=== PATIENT | male | born 1975 | race African-American/Black ===

== ENCOUNTER 2018-12-07 11:34 | Emergency (ER) | payer OTHER ==
[~2018-12-07] VITALS: Ht 175.3 cm; Wt 77.3 kg
[~2018-12-07 11:34] MED LIST: NOCURR
[2018-12-07] MEDS ORDERED: IBUPROFEN 600 MG TABLET PO ONE (14:15)
[2018-12-07 14:25] VITALS: BP 129/88
== END 2018-12-07 13:35 | disposition home or self-care (01) ==
LOC: EMS 11:35
DX: K05.10 Chronic gingivitis, plaque induced (principal); F12.90 Cannabis use, unspecified, uncomplicated